=== PATIENT | female | born 1930 | race Two or more races ===

== ENCOUNTER 2016-09-04 13:00 | Outpatient (RCR) | payer MEDICARE, OTHER | END 2016-10-04 | disposition home or self-care (01) | LOC: PTY 13:00 | DX: M51.36 Other intervertebral disc degeneration, lumbar region (principal); R26.81 Unsteadiness on feet; M25.569 Pain in unspecified knee | CPT/HCPCS: 97110; 97162; G8978; G8979 ==

== ENCOUNTER 2016-10-17 12:20 | Outpatient (RCR) | payer MEDICARE, OTHER | END 2016-11-03 | disposition home or self-care (01) | LOC: PTY 12:20 | DX: R26.81 Unsteadiness on feet (principal); M25.569 Pain in unspecified knee; M51.36 Other intervertebral disc degeneration, lumbar region ==

== ENCOUNTER 2016-11-24 13:30 | Outpatient (RCR) | payer MEDICARE, OTHER | END 2016-12-04 | disposition home or self-care (01) | LOC: PTY 13:30 | DX: R26.81 Unsteadiness on feet (principal); M25.569 Pain in unspecified knee; M51.36 Other intervertebral disc degeneration, lumbar region; R26.9 Unspecified abnormalities of gait and mobility ==

== ENCOUNTER → 2017-07-03 | Outpatient (CLI) | payer MEDICARE, OTHER ==
--- NOTE | 2017-07-04 08:29 | Diagnostic Imaging Report ---
Indication: Reason For Exam: COUGH Technique: 2 views of the chest Comparison: 12/07/2008 Findings: The heart is enlarged. 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 The lungs and pleural spaces are clear. The aorta is tortuous and calcified. Impression: No acute process
== END | disposition home or self-care (01) ==
LOC: RAD 16:12
DX: R05 Cough (principal); I51.7 Cardiomegaly
CPT/HCPCS: 71046

== ENCOUNTER 2019-02-11 10:02 | Outpatient (CLI) | payer MEDICARE, OTHER ==
[~2019-02-11] VITALS: Ht 144.8 cm; Wt 71.7 kg
[2019-02-11 11:59] VITALS: BP 137/81
[2019-02-11] MEDS ORDERED: NEXIUM40 MG ORAL (11:59)
[2019-02-11] MEDS ORDERED: SYNTHROID100 MCG ORAL (11:59)
[2019-02-11] MEDS ORDERED: CRESTOR20 MG ORAL (11:59)
--- NOTE | 2019-02-11 19:15 | Consultation ---
DATE OF CONSULTATION: 02/11/2019 CONSULTING PHYSICIAN: Farhan Kohler M.D. REFERRING PHYSICIAN: Eloy Rowe M.D. CHIEF COMPLAINT: Abdominal pain, chronic reflux disease, bloating. HISTORY OF PRESENT ILLNESS: This is an 88-year-old female, who was referred to us for evaluation of chronic GERD. The patient is currently on Nexium without significant improvement. She states she has mostly symptoms at nighttime. Also, she has been having some bloating, abdominal distension. Denies any constipation. Denies any bleeding. She has some loose stools on and off. Last colonoscopy was 10 years ago. PAST MEDICAL HISTORY: 1. Hypothyroidism. 2. GERD. 3. Asthma. 4. Sleep apnea. 5. Coronary artery disease. PAST SURGICAL HISTORY: She had a open heart surgery seven years ago. MEDICATIONS: She is on , levothyroxine, Nexium. FAMILY HISTORY: Noncontributory. SOCIAL HISTORY: The patient denies any tobacco, alcohol, or drug abuse. ALLERGIES: No known drug allergies. REVIEW OF SYSTEMS: Positive for GERD, diarrhea, bloating. PHYSICAL EXAMINATION: VITAL SIGNS: Temperature 97.8, blood pressure is 137/81, pulse is 82. The patient is 4 feet 9 inches, weight of 158. HEENT: Normocephalic and atraumatic. Sclerae anicteric. NECK: Supple. No evidence of obvious lymphadenopathy. CARDIOVASCULAR: Regular rate and rhythm. Plus S1 and S2. No obvious murmur. LUNGS: Clear to auscultation bilaterally. ABDOMEN: Positive bowel sounds. Soft and nontender. No rebound. No guarding. No peritoneal sign. EXTREMITIES: No cyanosis. No clubbing. No edema. NEUROLOGIC: Nonfocal. ASSESSMENT AND PLAN: This is an 88-year-old female with GERD symptoms, not responding to Nexium. Given age of 88. We will plan to do the conservative management. Plan will be to change the Nexium to Dexilant 60 mg p.o. daily. The patient to come back in a month if she still has heartburn symptoms. At that that time, we are going to consider doing endoscopy. The patient might also benefit from a stool test for H. pylori when she is off of PPI. In terms of bloating, these symptoms are suspicious for SIBO, small intestinal bacterial overgrowth. Plan to start her on Xifaxan 550 t.i.d. for 14 days. The patient to come back in the office in a month. At that time, we will decide if the patient qualifies for endoscopy. Also, we will consider putting in a probiotic if she Xifaxan. I want to thank, Dr. Eloy Rowe for this kind referral. Farhan Kohler M.D. DR: KADI JOB#: [id number] CC: Eloy Rowe M.D.; Fax#: [phone]
== END 2019-02-11 12:02 | disposition home or self-care (01) ==
LOC: PAN 10:02
DX: R10.9 Unspecified abdominal pain (principal); K21.9 Gastro-esophageal reflux disease without esophagitis; R14.0 Abdominal distension (gaseous); E03.9 Hypothyroidism, unspecified; G47.30 Sleep apnea, unspecified; I25.10 Atherosclerotic heart disease of native coronary artery without angina pectoris; Z79.899 Other long term (current) drug therapy
CPT/HCPCS: 99202

== ENCOUNTER 2019-03-19 14:03 | Outpatient (CLI) | payer MEDICARE, OTHER ==
[2019-03-19 14:00] VITALS: BP 123/59
[~2019-03-19 14:03] MED LIST: CRESTOR20 MG ORAL; NEXIUM40 MG ORAL; SYNTHROID100 MCG ORAL
--- NOTE | 2019-03-19 14:42 | General Progress Note ---
Assessment/Plan Assessment/Plan: 1. Hypothyroidism. 2. GERD. 3. Asthma. 4. Sleep apnea. 5. Coronary artery disease. 6. SIBO on cipro and flagyl x2 days RTC in 2 weeks Subjective ROS Limited/Unobtainable: Yes Allergies: Coded Allergies: No Known Allergies (Unverified , 09/01/16) Objective General Appearance: alert EENT: normal ENT inspection Neck: supple Cardiovascular: normal rate Respiratory/Chest: lungs clear Abdomen: normal bowel sounds, non tender, soft Extremities: non-tender Farhan Kohler MD Mar 19, 2019 14:41
== END 2019-03-19 16:03 | disposition home or self-care (01) ==
LOC: PAN 14:03
DX: K21.9 Gastro-esophageal reflux disease without esophagitis (principal); E03.9 Hypothyroidism, unspecified; J45.909 Unspecified asthma, uncomplicated; G47.30 Sleep apnea, unspecified; I25.10 Atherosclerotic heart disease of native coronary artery without angina pectoris; K56.609 Unspecified intestinal obstruction, unspecified as to partial versus complete obstruction
CPT/HCPCS: 99212

== ENCOUNTER 2019-10-13 12:20 | Outpatient (CLI) | payer MEDICARE, OTHER ==
--- NOTE | 2019-10-13 13:20 | General Progress Note ---
Assessment/Plan Assessment/Plan: Assessment/Plan Assessment/Plan: 1. Hypothyroidism. 2. GERD. 3. Asthma. 4. Sleep apnea. 5. Coronary artery disease. 6. SIBO did not like Dexillant agrees to EGD add pepcid PRN Subjective ROS Limited/Unobtainable: Yes Allergies: Coded Allergies: No Known Allergies (Unverified , 09/01/16) Objective General Appearance: alert EENT: normal ENT inspection Neck: supple Cardiovascular: normal rate Respiratory/Chest: lungs clear Abdomen: normal bowel sounds, non tender, soft Extremities: non-tender Farhan Kohler MD Oct 13, 2019 13:20
[2019-10-13 14:51] VITALS: BP 116/59
[2019-11-06] MEDS ORDERED: ALBUTEROL SULF8.5 G1 INH (09:33)
== END 2019-10-13 14:20 | disposition home or self-care (01) ==
LOC: PAN 12:20
DX: K21.9 Gastro-esophageal reflux disease without esophagitis (principal); E03.9 Hypothyroidism, unspecified; J45.909 Unspecified asthma, uncomplicated; G47.30 Sleep apnea, unspecified; I25.10 Atherosclerotic heart disease of native coronary artery without angina pectoris; K56.609 Unspecified intestinal obstruction, unspecified as to partial versus complete obstruction
CPT/HCPCS: 99212

== ENCOUNTER 2019-10-22 08:22 | Day surgery (SDC) | payer MEDICARE, OTHER ==
[~2019-10-22] VITALS: Ht 149.9 cm; Wt 68.0 kg
[2019-10-22] VITALS (8 sets, daily range): BP systolic 90–134; BP diastolic 46–77
[~2019-10-22 08:22] MED LIST changes: +LR 1000ml 1,000 ML IVLG SCH
[2019-10-22] MEDS ORDERED: ALLOPURINOL100 M1 ORAL (09:25)
[2019-10-22] MEDS ORDERED: AMLODIPINE BES2.5 MG ORAL (09:25)
--- NOTE | 2019-10-22 10:39 | Pre-Procedure Note/Attestation ---
Pre-Procedure Note/Attestation Complete Prior to Procedure Planned Procedure: not applicable Procedure Narrative: egd Indications for Procedure Pre-Operative Diagnosis: gerd Attestation I attest that I discussed the nature of the procedure; its benefits; risks and complications; and alternatives (and the risks and benefits of such alternatives ), prior to the procedure, with the patient (or the patient's legal sales solutions representative). I attest that, if there was a reasonable possibility of needing a blood transfusion, the patient (or the patient's legal sales solutions representative) was given the [facility] standardized written summary, pursuant to the [place]avier [place] Blood Safety Act ([place] Health and Safety Code # 1645, as amended). I attest that I re-evaluated the patient just prior to the surgery and that there has been no change in the patient's H&P, except as documented below: Farhan Kohler MD Oct 22, 2019 10:39
--- NOTE | 2019-10-22 10:40 | Short Stay Surgery H&P ---
History of Present Illness History of Present Illness Chief Complaint gerd HPI Jennifer Avila is a 88 year old female who was admitted on for GERD Patient History Allergies: Coded Allergies: No Known Allergies (Unverified , 10/17/19) PAST MEDICAL HISTORY: (1) GERD (gastroesophageal reflux disease) (2) Abdominal pain Medication History Scheduled Allopurinol* (Allopurinol*), 100 MG ORAL DAILY, (Reported) Amlodipine Besylate* (Amlodipine Besylate*), 2.5 MG ORAL DAILY, (Reported) Levothyroxine Sodium* (Synthroid*), 100 MCG ORAL DAILY, (Reported) Rosuvastatin Calcium* (Crestor*), 20 MG ORAL DAILY, (Reported) Review of Systems Cardiovascular: Reports: no symptoms Respiratory: Reports: no symptoms Skeletal: Reports: no symptoms Gastrointestinal: Reports: peptic ulcer disease, gastro esophageal reflux disease Genitourinary: Reports: no symptoms Neurologic: Reports: no symptoms Endocrine: Reports: no symptoms Hematologic: Reports: no symptoms Physical Exam Vital Signs Last Vital Signs Date Time Temp Pulse Resp B/P (MAP) Pulse Ox O2 Delivery O2 Flow Rate FiO2 10/22/19 09:33 Room Air 10/22/19 09:32 97.7 92 18 134/77 97 Skin: normal HENT: normal Heart: normal Lungs: normal Abdomen: normal Extremities: normal Plan Plan of Care egd Attestation Are the patient's medical conditions optimized for surgery? Farhan Kohler MD Oct 22, 2019 10:40
[2019-10-22] MEDS ORDERED: Lidocaine 1% MPF 10mg/ml 5ml ONE (11:00)
[2019-10-22] MEDS ORDERED: LR 1000ml ONE (11:00)
--- NOTE | 2019-10-22 11:26 | Endoscopy Procedure Note ---
Endoscopy Procedure Note General Indication for Procedure: abd pain Procedures Performed: EGD Operative Findings/Diagnosis: gastritis Specimen: yes Pt Tolerated Procedure Well: Yes Estimated Blood Loss: none Anesthesia Anesthesiologist: domenico Anesthesia: MAC Inserted Devices Implant(s) used?: No GI Core Measures 50 yrs or older w/o bx or poly: Not Applicable 10yrs. F/U recommended: Not Applicable Farhan Kohler MD Oct 22, 2019 11:26
--- NOTE | 2019-10-22 11:32 | Anethesia Preoperative Eval ---
Anesthesia Pre-op PMH/ROS General Date of Evaluation: Oct 22, 2019 Time of Evaluation: 11:12 Anesthesiologist: lou ASA Score: ASA 2 Mallampati Score Class I : Soft palate, uvula, fauces, pillars visible Class II: Soft palate, uvula, fauces visible Class III: Soft palate, base of uvula visible Class IV: Only hard plate visible Mallampati Classification: Class II Surgeon: jose angel Diagnosis: GERD Surgical Procedure: EGD Anesthesia History: none Family History: no anesthesia problems Allergies: Coded Allergies: No Known Allergies (Unverified , 10/17/19) Medications: see eMAR Patient NPO?: Yes NPO Date: Oct 22, 2019 NPO Time: 00:01 Past Medical History Cardiovascular: Reports: HTN; Denies: CAD, [place], valve dz, arrhythmia, other Pulmonary: Denies: asthma, COPD, [place], other Gastrointestinal/Genitourinary: Reports: GERD; Denies: CRI, ESRD, other Neurologic/Psychiatric: Denies: dementia, CVA, depression/anxiety, TIA, other Endocrine: Reports: hypothyroidism; Denies: DM, steroids, other HEENT: Denies: cataract (L), cataract (R), glaucoma, NOATAK (L), NOATAK (R), other Hematology/Immune: Denies: anemia, DVT, bleeding disorder, other Anesthesia Pre-op Phys. Exam Physician Exam Last Vital Signs Date Time Temp Pulse Resp B/P (MAP) Pulse Ox O2 Delivery O2 Flow Rate FiO2 10/22/19 09:33 Room Air 10/22/19 09:32 97.7 92 18 134/77 97 Constitutional: NAD Neurologic: CN 2-12 intact Cardiovascular: RRR Respiratory: CTA Gastrointestinal: S/NT/ND Airway Exam Mallampati Score: Class II MO: full ROM: full Dentures: no upper, no lower Anesthesia Pre-op A/P Studies Pre-op Studies: EKG - SR Risk Assessment & Plan Plan: mac Status Change Before Surgery: No Pre-Antibiotics Drug: none Jenny Burch CRNA Oct 22, 2019 11:32
--- NOTE | 2019-10-22 11:33 | Immediate Post-Op Evaluation ---
Immediate Post-Op Evalulation Immediate Post-Op Evalulation Procedure: EGD Date of Evaluation: Oct 22, 2019 Time of Evaluation: 11:32 IV Fluids: 500 Blood Pressure Systolic: 99 Blood Pressure Diastolic: 65 Pulse Rate: 86 Respiratory Rate: 14 O2 Sat by Pulse Oximetry: 98 Temperature (Fahrenheit): 97.5 Nausea: No Vomiting: No Complications none Patient Status: awake, reacts, patent Hydration Status: adequate Drug: none Jenny Burch CRNA Oct 22, 2019 11:33
--- NOTE | 2019-10-22 12:30 | 48 Hour Post Anesthesia Eval ---
Post Anesthesia Evaluation Procedure: EGD Date of Evaluation: Oct 22, 2019 Time of Evaluation: 12:29 Blood Pressure Systolic: 103 0: 56 Pulse Rate: 51 Respiratory Rate: 14 O2 Sat by Pulse Oximetry: 98 Airway: patent Nausea: No Vomiting: No Hydration Status: adequate Cardiopulmonary Status: stable Mental Status/LOC: patient returned to baseline Follow-up Care/Observations: na Post-Anesthesia Complications: none Follow-up care needed: N/A Jenny Burch CRNA Oct 22, 2019 12:30
--- NOTE | 2019-10-22 14:15 | Procedure Note ---
DATE OF PROCEDURE: 10/22/2019 SURGEON: Farhan Kohler MD. PROCEDURE: Upper endoscopy with biopsy. ANESTHESIA: Per TRAUMA COORDINATOR, Jenny Tarrilldinesh. INSTRUMENT: Olympus adult flexible upper endoscope. INDICATION: Chronic GERD, symptomatic GERD, and abdominal pain. REASON FOR PROCEDURE: The procedure, risks, benefits, and possible consequences, including hemorrhage, aspiration, perforation and infection, and alternative treatments, were explained to the patient/legal guardian by Dr. Farhan Kohler and the patient/legal guardian understood and accepted these risks. PROCEDURE IN DETAIL: After informed consent was obtained and the patient was adequately sedated, Olympus upper endoscope was advanced from mouth into the second portion of the duodenum and retroflexion was performed in the stomach. The patient is having some small hiatal hernia. In the stomach, there was diffuse gastritis. Random biopsy from antrum was obtained to rule out H. pylori infection. There was no evidence of any esophagitis. No evidence of any gastric ulceration. No duodenal ulceration. The patient tolerated the procedure very well without any complication. SUMMARY OF FINDINGS: 1. Gastritis. 2. Hiatal hernia RECOMMENDATIONS: Follow biopsy results and treat accordingly. Farhan Kohler M.D. DR: DEJUAN JOB#: [id number] CC:
[2019-11-06] MEDS ORDERED: ALBUTEROL SULF8.5 G1 INH (09:33)
== END 2019-10-22 12:45 | disposition home or self-care (01) ==
LOC: GAS 08:22
DX: K21.9 Gastro-esophageal reflux disease without esophagitis (principal); K44.9 Diaphragmatic hernia without obstruction or gangrene; R10.9 Unspecified abdominal pain; K29.50 Unspecified chronic gastritis without bleeding; Z87.11 Personal history of peptic ulcer disease; E03.9 Hypothyroidism, unspecified; I10 Essential (primary) hypertension
CPT/HCPCS: 43239; 93005; 94003; G0463; J2704; J7120; 94150; 99212

== ENCOUNTER 2019-11-05 13:02 | Outpatient (CLI) | payer MEDICARE, OTHER ==
[~2019-11-05 13:02] MED LIST changes: +ALLOPURINOL100 M1 ORAL; +AMLODIPINE BES2.5 MG ORAL; -LR 1000ml 1,000 ML IVLG SCH
--- NOTE | 2019-11-05 18:15 | Progress Note ---
DATE: 11/05/2019 SUBJECTIVE: She is here for endoscopy followup. OBJECTIVE: VITAL SIGNS: Temperature 97.8, blood pressure 127/84, pulse 99, respirations 20. HEENT: Normocephalic and atraumatic. Sclerae anicteric. NECK: Supple. No evidence of obvious lymphadenopathy. CARDIOVASCULAR: Regular rate and rhythm. Plus S1 and S2. LUNGS: Clear to auscultation bilaterally. ABDOMEN: Positive bowel sounds. Soft and nontender. No rebound. No guarding. No peritoneal sign. EXTREMITIES: No cyanosis. No clubbing. No edema ASSESSMENT AND PLAN: This is an 88-year-old female with chronic acid reflux disease, currently on Dexilant and p.r.n. Pepcid. She also has history of hypothyroidism, GERD, asthma, sleep apnea, coronary artery disease, and SIBO. At this time, we recommend the patient continue current medication. Endoscopy procedure was explained to the patient. Biopsy showed negative H. pylori. The patient was told at this time she just continue current medication and come back if there is any symptoms. Meanwhile, she was educated about the diet for GERD. Family asked about colonoscopy, but she is 88, we decided not to do colonoscopy at this time given her age. Farhan Kohler M.D. DR: Juancarlos JOB#: [id number] CC:
[2019-11-06 09:33] VITALS: BP 126/84
[2019-11-06] MEDS ORDERED: ALBUTEROL SULF8.5 G1 INH (09:33)
== END 2019-11-05 15:00 | disposition home or self-care (01) ==
LOC: PAN 13:02
DX: K21.9 Gastro-esophageal reflux disease without esophagitis (principal); Z79.899 Other long term (current) drug therapy; E03.9 Hypothyroidism, unspecified; G47.30 Sleep apnea, unspecified; I25.10 Atherosclerotic heart disease of native coronary artery without angina pectoris
CPT/HCPCS: 99212